=== PATIENT | male | born 1995 | race Caucasian/White ===

== ENCOUNTER 2016-04-17 19:48 | Emergency (ER) | payer MEDICAID ==
--- NOTE | 2016-04-17 21:00 | RAD ---
Indication: Chest pain. 2 views of the chest including dual energy PA views demonstrates no mediastinal shift. Heart is of normal size and configuration. Lung james are clear. IMPRESSION: No active cardiopulmonary disease is noted.
[2016-04-17] MEDS ORDERED: Aspirin Low Dose CHEW TAB* 81 MG PO ONE (21:28)
[2016-04-17] MEDS ORDERED: LORazepam INJ* 2 MG/ML 1 ML VIAL IV PUSH ONE (21:49)
[2016-04-17 22:16] LABS: Hematocrit 47 % (42-52); Hemoglobin 15.7 g/dl (14.0-18.0); Mean Corpuscular HGB Conc 34 g/dl (31-36); Mean Corpuscular Hemoglobin 32 pg (27-31); Mean Corpuscular Volume 94 fL (80-94); Mean Platelet Volume 8 um3 (7.4-10.4); Red Blood Count 4.97 10^6/ul (4.0-5.4); Red Cell Distribution Width 13 % (10.5-15); White Blood Count 13.2 10^3/ul (3.5-10.8)
[2016-04-17 22:32] LABS: Albumin 4.6 g/dL (3.2-5.2); BUN/Creatinine Ratio 13.1 (8-20); EGFR African American 98.4 (>60); EGFR Non-African American 76.5 (>60); Globulin 2.9 g/dL (2-4); Potassium 4.3 mmol/L (3.5-5.0); Total Bilirubin 0.5 mg/dL (0.2-1.0); Total Protein 7.5 g/dL (6.4-8.9)
[2016-04-17 22:34] LABS: Troponin I 0.03 ng/mL (<0.04)
[2016-04-17] MEDS ORDERED: Ketorolac INJ* 30 MG/ML 1 ML VIAL IV ONE (23:01)
[2016-04-17 23:53] VITALS: BP 119/53
--- NOTE | 2016-04-17 23:53 | ED ---
Candelaria Cantu Michael, scribed for Chely Laws MD on 04/17/16 at 2200 . HPI Chest Pain - HPI Summary HPI Summary: 20 y/o male comes to the ED presenting with constant chest pain that started today at 1300. The pt reports that he used cocaine today at 1200 and has a hx of using cocaine once every few weeks. He states the pain is a 7 out of 10 on a pain severity scale. He denies experiencing chest pain with prior cocaine use. He also c/o SOB. - History of Current Complaint Chief Complaint: EDChestPainROMI Time Seen by Provider: 04/17/16 21:28 Hx Obtained From: Patient, Medical Records Onset/Duration: Started Hours Ago Timing: Constant Initial Severity: Moderate Current Severity: Moderate Pain Intensity: 7 Pain Scale Used: 0-10 Numeric Chest Pain Radiates: No Aggravating Factor(s): Other: - cocaine use Alleviating Factor(s): Nothing Associated Signs and Symptoms: Positive: Chest Pain, Shortness of Breath - Allergy/Home Medications Allergies/Adverse Reactions: Allergies Allergy/AdvReac Type Severity Reaction Status Date / Time No Known Allergies Allergy Unverified 12/29/15 10:23 PMH/Surg Hx/FS Hx/Imm Hx Endocrine/Hematology History: Denies: Hx Diabetes, Hx Thyroid Disease Cardiovascular History: Denies: Hx Congestive Heart Failure, Hx Hypertension Respiratory History: Denies: Hx Asthma, Hx Chronic Obstructive Pulmonary Disease (COPD) GI History: Denies: Hx Ulcer History: Denies: Hx Renal Disease - Cancer History Cancer Type, Location and Year: ADHD - Surgical History Surgery Procedure, Year, and Place: appendectomy, lump removed R wrist Hx Anesthesia Reactions: No Infectious Disease History: No Infectious Disease History: Denies: Hx Hepatitis, Hx Human Immunodeficiency Virus (HIV), Traveled Outside the US in Last 30 Days - Family History Known Family History: Positive: Hypertension - Social History Occupation: Unemployed Lives: With Family Alcohol Use: None Hx Substance Use: Yes Substance Use Type: Reports: Cocaine, Marijuana Substance Use Comment - Amount & Last Used: states he has been in rehab and has not used any since Hx Tobacco Use: No Smoking Status (MU): Light Every Day Tobacco Smoker Type: Cigarettes Review of Systems Negative: Fever Positive: Chest Pain Positive: Shortness Of Breath All Other Systems Reviewed And Are Negative: Yes Physical Exam Triage Information Reviewed: Yes Vital Signs On Initial Exam: Initial Vitals Temp Pulse Resp BP Pulse Ox 99.5 F 120 18 161/77 100 04/17/16 19:55 04/17/16 19:55 04/17/16 19:55 04/17/16 19:55 04/17/16 19:55 Vital Signs Reviewed: Yes Appearance: Positive: Well-Appearing, No Pain Distress Skin: Positive: Warm, Skin Color Reflects Adequate Perfusion, Dry Eyes: Positive: EOMI, JEWELL ENT: Positive: Pharynx normal, TMs normal Neck: Positive: Supple, Nontender Respiratory/Lung Sounds: Positive: Clear to Auscultation, Breath Sounds Present. Negative: Rales, Rhonchi, Wheezes Cardiovascular: Positive: RRR, Other - no gallop. Negative: Murmur, Rub Abdomen Description: Positive: Nontender, Soft, Other: - no rebound. Negative: Distended, Guarding Bowel Sounds: Positive: Present Musculoskeletal: Positive: Strength/ROM Intact Neurological: Positive: Sensory/Motor Intact, Alert, Oriented to Person Place, Time, CN Intact II-III Psychiatric: Positive: Affect/Mood Appropriate Diagnostics - Vital Signs Vital Signs Temp Pulse Resp BP Pulse Ox 04/17/16 19:55 99.5 F 120 18 161/77 100 - Laboratory Lab Results: Lab Results 04/17/16 04/17/16 04/17/16 Range/Units 22:05 22:05 22:05 WBC 13.2 H (3.5-10.8) 10^3/ul RBC 4.97 (4.0-5.4) 10^6/ul Hgb 15.7 (14.0-18.0) g/dl Hct 47 (42-52) % MCV 94 (80-94) fL MCH 32 H (27-31) pg MCHC 34 (31-36) g/dl RDW 13 (10.5-15) % Plt Count 239 (150-450) 10^3/ul MPV 8 (7.4-10.4) um3 Neut % (Auto) 82.6 (38-83) % Lymph % (Auto) 12.3 L (25-47) % Williamson % (Auto) 4.7 (1-9) % Eos % (Auto) 0.1 (0-6) % Baso % (Auto) 0.3 (0-2) % Absolute Neuts (auto) 10.9 H (1.5-7.7) 10^3/ul Absolute Lymphs (auto) 1.6 (1.0-4.8) 10^3/ul Absolute Monos (auto) 0.6 (0-0.8) 10^3/ul Absolute Eos (auto) 0 (0-0.6) 10^3/ul Absolute Basos (auto) 0 (0-0.2) 10^3/ul Absolute Nucleated RBC 0 10^3/ul Nucleated RBC % 0 Sodium 138 (133-145) mmol/L Potassium 4.3 (3.5-5.0) mmol/L Chloride 103 (101-111) mmol/L Carbon Dioxide 27 (22-32) mmol/L Anion Gap 8 (2-11) mmol/L BUN 16 (6-24) mg/dL Creatinine 1.22 H (0.67-1.17) mg/dL Est GFR ( Amer) 98.4 (>60) Est GFR (Non-Af Amer) 76.5 (>60) BUN/Creatinine Ratio 13.1 (8-20) Glucose 92 (70-100) mg/dL Lactic Acid 1.4 (0.5-2.0) mmol/L Calcium 10.0 (8.6-10.3) mg/dL Total Bilirubin 0.50 (0.2-1.0) mg/dL AST 18 (13-39) U/L ALT 18 (7-52) U/L Alkaline Phosphatase 128 H (34-104) U/L Troponin I 0.03 (<0.04) ng/mL Total Protein 7.5 (6.4-8.9) g/dL Albumin 4.6 (3.2-5.2) g/dL Globulin 2.9 (2-4) g/dL Albumin/Globulin Ratio 1.6 (1-3) Result Diagrams: 04/17/16 22:05 04/17/16 22:05 Lab Statement: Any lab studies that have been ordered have been reviewed, and results considered in the medical decision making process. - Radiology CXR Xray Interpretation: No Acute Changes Radiology Interpretation Completed By: Radiologist - EKG EK EKG Rhythm: Sinus Tachycardia - 103 bpm Chest Pain Course/Dx - Course Course Of Treatment: 20 y/o male comes to the ED presenting with CP after cocaine use today. His EKG showed tachycardia and his CXR was nml. The pt is dx with chest pain and cocaine abuse and will be discharged home. cp unchanged since 1pm today trop is neg. given ativan and toradol much more comfortable and ok to go home. long talk with pt about cocaine/crack and its bad effects on the heart - Diagnoses Provider Diagnoses: Cocaine abuse, Chest pain Discharge - Discharge Plan Condition: Stable Disposition: HOME Patient Education Materials: Cocaine Abuse (ED), Chest Pain (ED) Referrals: Henry Aleman MD [Primary Care Provider] - Additional Instructions: you will follow up with Dr. Aleman within the next 2 days. The documentation as recorded by the Candelaria mclean Michael accurately reflects the service I personally performed and the decisions made by me, Chely Laws MD.
[2016-05-01] MEDS ORDERED: Ibuprofen TAB* 400 MG PO PRN (19:30)
== END 2016-04-17 23:52 | disposition home or self-care (01) ==
LOC: ED 19:48
DX: F14.10 Cocaine abuse, uncomplicated (principal); R07.9 Chest pain, unspecified; R06.02 Shortness of breath; F17.210 Nicotine dependence, cigarettes, uncomplicated
CPT/HCPCS: 36415; 71020; 80053; 83605; 84484; 85025; 93005; 96374; 96375; 99282; A9270-GY; J1885; J2060

== ENCOUNTER 2016-04-18 01:55 | Inpatient (IN) | payer MEDICAID ==
[2016-04-18 02:33] LABS: Hematocrit 47 % (42-52); Hemoglobin 15.9 g/dl (14.0-18.0); Mean Corpuscular HGB Conc 34 g/dl (31-36); Mean Corpuscular Hemoglobin 32 pg (27-31); Mean Corpuscular Volume 94 fL (80-94); Mean Platelet Volume 8 um3 (7.4-10.4); Red Blood Count 4.97 10^6/ul (4.0-5.4); Red Cell Distribution Width 13 % (10.5-15)
[2016-04-18 02:45] LABS: ALT 17 U/L (7-52); AST 17 U/L (13-39); Albumin 4.8 g/dL (3.2-5.2); Alkaline Phosphatase 116 U/L (34-104); Anion Gap 9 mmol/L (2-11); Blood Urea Nitrogen 18 mg/dL (6-24); CO2 Carbon Dioxide 27 mmol/L (22-32); Calcium 9.9 mg/dL (8.6-10.3); Chloride 101 mmol/L (101-111); EGFR African American 100.3 (>60); Globulin 2.5 g/dL (2-4); Glucose 97 mg/dL (70-100); Potassium 3.7 mmol/L (3.5-5.0); Sodium 137 mmol/L (133-145); Total Protein 7.3 g/dL (6.4-8.9)
[2016-04-18 03:11] LABS: Acetaminophen < 15 mcg/mL; Alcohol < 10 mg/dL (<10); Salicylate < 2.50 mg/dL (<30)
[2016-04-18 03:22] LABS: TSH (Thyroid Stimulating Horm) 4.04 mcIU/mL (0.34-5.60)
[2016-04-18] MEDS ORDERED: LORazepam TAB(*) 1 MG PO ONE (03:27)
--- NOTE | 2016-04-18 06:36 | ED ---
karen Cantu Timothy, scribed for Kosta Daly MD on 04/18/16 at 0253 . Psychiatric Complaint - HPI Summary HPI Summary: Michoacano Gonzales is a 20 yo male presenting to [facility] for a MHE, BIBA. He got into a fight with his family at 0100 today, and wants to hurt someone, per triage, and in room. He states he called the police on himself. He called from a store, where he was told by the dispatcher to hand over a pocket knife in his possession. He was seen by [facility] yesterday for CP following cocaine use. He states he has been hearing voices. He has a Hx of chronic cocaine use. He has no pertinent MHx. - History Of Current Complaint Time Seen by Provider: 04/18/16 02:34 Hx Obtained From: Patient Timing: Constant Severity Initially: Moderate Severity Currently: Moderate Associated Signs And Symptoms: Positive: Hostile - Allergies/Home Medications Allergies/Adverse Reactions: Allergies Allergy/AdvReac Type Severity Reaction Status Date / Time No Known Allergies Allergy Unverified 12/29/15 10:23 PMH/Surg Hx/FS Hx/Imm Hx Endocrine/Hematology History: Denies: Hx Diabetes, Hx Thyroid Disease Cardiovascular History: Denies: Hx Congestive Heart Failure, Hx Hypertension Respiratory History: Denies: Hx Asthma, Hx Chronic Obstructive Pulmonary Disease (COPD) GI History: Denies: Hx Ulcer History: Denies: Hx Renal Disease - Cancer History Cancer Type, Location and Year: ADHD - Surgical History Surgery Procedure, Year, and Place: appendectomy, lump removed R wrist Hx Anesthesia Reactions: No Infectious Disease History: No Infectious Disease History: Denies: Hx Hepatitis, Hx Human Immunodeficiency Virus (HIV), Traveled Outside the US in Last 30 Days - Family History Known Family History: Positive: Hypertension - Social History Lives: With Family Alcohol Use: None Hx Substance Use: Yes Substance Use Type: Reports: Cocaine, Marijuana Substance Use Comment - Amount & Last Used: states he has been in rehab and has not used any since Hx Tobacco Use: No Smoking Status (MU): Light Every Day Tobacco Smoker Type: Cigarettes Review of Systems Constitutional: Negative Eyes: Negative ENT: Negative Cardiovascular: Negative Respiratory: Negative Gastrointestinal: Negative Genitourinary: Negative Musculoskeletal: Negative Skin: Negative Neurological: Negative Positive: Other - auditory hallucinations, homicidal ideation All Other Systems Reviewed And Are Negative: Yes Physical Exam - Summary Physical Exam Summary: GENERAL: Awake, alert, oriented, no acute distress, very pleasant HEENT: Head is normocephalic, atraumatic, anicteric sclera, clear conjunctiva, mucous membranes moist, no erythema, no discharge, no lesions, neck is supple, trachea is midline, no JVD CARDIAC: Regular rate and rhythm, S1, S2, no rub, no murmur, no gallop, 2+ radial and pedal pulses bilaterally RESPIRATORY: Clear to auscultation bilaterally with no rales, rhonchi, or wheezes, non-tender ABDOMEN: Bowel sounds positive, no bruit, soft, non-tender, no CVA tenderness EXTREMITIES: No edema, warm, dry, moving all extremities in a grossly normal manner NEUROLOGICAL: Mood is appropriate, moving all extremities in a grossly normal manner Triage Information Reviewed: Yes Vital Signs On Initial Exam: Initial Vitals Temp Pulse Resp BP Pulse Ox 98.6 F 90 16 112/74 98 04/18/16 02:12 04/18/16 02:12 04/18/16 02:12 04/18/16 02:12 04/18/16 02:12 Vital Signs Reviewed: Yes Diagnostics - Vital Signs Vital Signs Temp Pulse Resp BP Pulse Ox 04/18/16 02:12 98.6 F 90 16 112/74 98 - Laboratory Lab Results: Lab Results 04/18/16 04/18/16 Range/Units 02:19 02:19 WBC 10.0 (3.5-10.8) 10^3/ul RBC 4.97 (4.0-5.4) 10^6/ul Hgb 15.9 (14.0-18.0) g/dl Hct 47 (42-52) % MCV 94 (80-94) fL MCH 32 H (27-31) pg MCHC 34 (31-36) g/dl RDW 13 (10.5-15) % Plt Count 221 (150-450) 10^3/ul MPV 8 (7.4-10.4) um3 Neut % (Auto) 68.8 (38-83) % Lymph % (Auto) 23.2 L (25-47) % Bullock % (Auto) 7.5 (1-9) % Eos % (Auto) 0.2 (0-6) % Baso % (Auto) 0.3 (0-2) % Absolute Neuts (auto) 6.9 (1.5-7.7) 10^3/ul Absolute Lymphs (auto) 2.3 (1.0-4.8) 10^3/ul Absolute Monos (auto) 0.7 (0-0.8) 10^3/ul Absolute Eos (auto) 0 (0-0.6) 10^3/ul Absolute Basos (auto) 0 (0-0.2) 10^3/ul Absolute Nucleated RBC 0 10^3/ul Nucleated RBC % 0 Sodium 137 (133-145) mmol/L Potassium 3.7 (3.5-5.0) mmol/L Chloride 101 (101-111) mmol/L Carbon Dioxide 27 (22-32) mmol/L Anion Gap 9 (2-11) mmol/L BUN 18 (6-24) mg/dL Creatinine 1.20 H (0.67-1.17) mg/dL Est GFR ( Amer) 100.3 (>60) Est GFR (Non-Af Amer) 78.0 (>60) BUN/Creatinine Ratio 15.0 (8-20) Glucose 97 (70-100) mg/dL Calcium 9.9 (8.6-10.3) mg/dL Total Bilirubin 0.70 (0.2-1.0) mg/dL AST 17 (13-39) U/L ALT 17 (7-52) U/L Alkaline Phosphatase 116 H (34-104) U/L Total Protein 7.3 (6.4-8.9) g/dL Albumin 4.8 (3.2-5.2) g/dL Globulin 2.5 (2-4) g/dL Albumin/Globulin Ratio 1.9 (1-3) TSH 4.04 (0.34-5.60) mcIU/mL Salicylates < 2.50 (<30) mg/dL Acetaminophen < 15 mcg/mL Serum Alcohol < 10 (<10) mg/dL Result Diagrams: 04/18/16 02:19 04/18/16 02:19 Lab Statement: Any lab studies that have been ordered have been reviewed, and results considered in the medical decision making process. Course/Dx - Course Assessment/Plan: Pt medically cleared for [facility] at 0320. - Differential Dx/Clinical Impression Provider Diagnosis: mood disorder Discharge - Discharge Plan Condition: Stable Disposition: OTHER Discharge Disposition Comment: Signed out to Dr. Hutchins The documentation as recorded by the karen mclean Timothy accurately reflects the service I personally performed and the decisions made by me, Kosta Daly MD.
[2016-04-18] MEDS ORDERED: Al Hydrox/Mg Hydrox/Simet LIQ* 30 ML UDC PO PRN (16:07)
[2016-04-18 17:27] LABS: Urine Bilirubin Negative (Negative); Urine Glucose Negative (Negative); Urine Nitrite Negative (Negative)
[2016-04-18 17:36] LABS: Benzodiazepine Urine Screen None Detected (None Detect)
[2016-04-18] MEDS: Acetaminophen TAB* 325 MG PO PRN (21:06)
[2016-04-19] MEDS: OLANzapine TAB*ODT* 10 MG TAB PO PRN ×2 (01:15→20:20)
--- NOTE | 2016-04-19 15:28 | PN ---
ED Flex Patient Progress Note Subjective: This is a 20 year-old M who is pending admission to [facility] secondary to wanting to hurt his family. Pt offers no complaints at this time. He has eaten breakfast today stating that lunch was disgusting. He is sleeping well after medication was given last night. He is cooperative at time of exam. Objective: Vitals: Most recent vital signs documented below. General NAD, Alert and oriented x3. Heart: rrr at 80 bpm Lungs: CTA or with rales, rhonchi, wheezing Abdomen: soft, nontender, normactive bowel sounds Laboratory: Current laboratory results documented below. Assessment: Mood disorder Plan: Pending psychiatric to admit, will follow up daily until placed in unit Condition: stable Disposition: admit to [facility] Vital Signs Temp Pulse Resp BP Pulse Ox 98.9 F 101 16 129/66 98 04/18/16 09:47 04/18/16 09:47 04/18/16 09:47 04/18/16 09:47 04/18/16 09:47 Lab Results - Entire Visit 04/18/16 04/18/16 04/18/16 17:00 17:00 02:19 WBC RBC Hgb Hct MCV MCH MCHC RDW Plt Count MPV Neut % (Auto) Lymph % (Auto) Mcleod % (Auto) Eos % (Auto) Baso % (Auto) Absolute Neuts (auto) Absolute Lymphs (auto) Absolute Monos (auto) Absolute Eos (auto) Absolute Basos (auto) Absolute Nucleated RBC Nucleated RBC % Sodium 137 Potassium 3.7 Chloride 101 Carbon Dioxide 27 Anion Gap 9 BUN 18 Creatinine 1.20 H Est GFR ( Amer) 100.3 Est GFR (Non-Af Amer) 78.0 BUN/Creatinine Ratio 15.0 Glucose 97 Calcium 9.9 Total Bilirubin 0.70 AST 17 ALT 17 Alkaline Phosphatase 116 H Total Protein 7.3 Albumin 4.8 Globulin 2.5 Albumin/Globulin Ratio 1.9 TSH 4.04 Urine Color Yellow Urine Appearance Clear Urine pH 6.0 Ur Specific Lamar 1.021 Urine Protein Negative Urine Ketones Negative Urine Blood Negative Urine Nitrate Negative Urine Bilirubin Negative Urine Urobilinogen Negative Ur Leukocyte Esterase Negative Urine Glucose Negative Salicylates < 2.50 Urine Opiates Screen None detected Acetaminophen < 15 Ur Barbiturates Screen None detected Ur Phencyclidine Scrn None detected Ur Amphetamines Screen None detected U Benzodiazepines Scrn None detected Urine Cocaine Screen Presumptive positive H U Cannabinoids Screen Presumptive positive H Serum Alcohol < 10 04/18/16 02:19 WBC 10.0 RBC 4.97 Hgb 15.9 Hct 47 MCV 94 MCH 32 H MCHC 34 RDW 13 Plt Count 221 MPV 8 Neut % (Auto) 68.8 Lymph % (Auto) 23.2 L Mcleod % (Auto) 7.5 Eos % (Auto) 0.2 Baso % (Auto) 0.3 Absolute Neuts (auto) 6.9 Absolute Lymphs (auto) 2.3 Absolute Monos (auto) 0.7 Absolute Eos (auto) 0 Absolute Basos (auto) 0 Absolute Nucleated RBC 0 Nucleated RBC % 0 Sodium Potassium Chloride Carbon Dioxide Anion Gap BUN Creatinine Est GFR ( Amer) Est GFR (Non-Af Amer) BUN/Creatinine Ratio Glucose Calcium Total Bilirubin AST ALT Alkaline Phosphatase Total Protein Albumin Globulin Albumin/Globulin Ratio TSH Urine Color Urine Appearance Urine pH Ur Specific Lamar Urine Protein Urine Ketones Urine Blood Urine Nitrate Urine Bilirubin Urine Urobilinogen Ur Leukocyte Esterase Urine Glucose Salicylates Urine Opiates Screen Acetaminophen Ur Barbiturates Screen Ur Phencyclidine Scrn Ur Amphetamines Screen U Benzodiazepines Scrn Urine Cocaine Screen U Cannabinoids Screen Serum Alcohol
[2016-04-19] MEDS ORDERED: Mouth Piece, Nicotine* 1 EACH CARTRIDGE ONE (16:35)
[2016-04-19] MEDS: Nicotine Inhaler* 10 MG AMP INH PRN (16:36)
[2016-04-19] MEDS: Vitamin THERAPEUTIC TAB PO SCH (20:54)
[2016-04-20] MEDS: OLANzapine TAB*ODT* 10 MG TAB PO PRN ×2 (08:24→20:18)
[2016-04-20] MEDS: Vitamin THERAPEUTIC TAB PO SCH (08:24)
--- NOTE | 2016-04-20 11:55 | PN ---
MHU: Group Therapy Note - Service Type Service Type: [id number] Group Psychotherapy - Cognitive Behavioral Group Therapy ( CBT):Patient was attentive and participatory in CBT programming this morning, and remained in good behavioral control. Patient expressed positive insights regarding relevant treatment interventions and goals.
--- NOTE | 2016-04-20 14:25 | HP ---
DATE OF ADMISSION: 04/19/2016. JUSTIFICATION FOR ADMISSION: The patient is in need of 24 hour supervision and care secondary to homicidal statements with 72 hours of admission date. CHIEF COMPLAINT: "I just needed a break. I was at the ER earlier in the day and I decided to come back to get off the streets." HISTORY OF PRESENT ILLNESS: The patient is a 20-year-old, white and -Salvadorean male with a history of ADHD and substance abuse issues who arrived at our emergency room for the second evaluation in a 24 hour period due to homicidal ideations. The patient had been earlier evaluated in our ER for cocaine- induced chest pain and had been discharged to home. Later he had arrived at his mother's house and gotten into some type of altercation with his mother and brother which was verbal in nature and he left the house being angry and frustrated. He went to a local gas station where he told the gasoline plant operator that he was experiencing mental health problems and asked her to call the ambulance. At that point, the dispatcher maintenance service spoke with him on the phone and he admitted that he had a 4 inch pocket knife which at the dispatcher' s request he handed over to the gas cab station attendant. From there the ambulance brought him back to the ER where he continued to endorse being unsafe. He specifically had homicidal ideations towards his family. When asked about a plan, he specifically told them that he would bake them a pie and put antifreeze in it "to make them go to sleep forever." At this point, the patient has a very different story. Apparently the cocaine in his system has worn off and he is no longer agitated or homicidal. In fact, he is very much minimizing the circumstances of this admission, telling me "I just needed an excuse to come to the hospital, I wasn't going to hurt someone, I've never hurt anybody." Although he had endorsed auditory hallucinations in the ER, he now denies them, stating that whoever documented this in the ER is being dishonest. 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 She is informing me that it is her intention to violate his probation if he does not accept transfer to an inpatient substance abuse facility. The patient is in agreement with this and is willing to sign consent to be transferred to rehab. PAST PSYCHIATRIC HISTORY: The patient does admit that he was diagnosed with ADHD as a child and used to take Ritalin. According to his mother, he also received treatment with Seroquel. This was through the [facility], which is through [facility]. The patient also had a brief history of treatment at [facility] in 2012. Other than this, his only psychiatric assessments have been in the substance abuse setting. The patient has no history of psychiatric admission or suicidal behavior. PAST MEDICAL HISTORY: Noncontributory. MEDICATIONS: He is on no current medications. ALLERGIES: He has no known drug allergies. FAMILY HISTORY: Significant for his mother who has bipolar disorder. Apparently, both his mother and father have abused cocaine in the past. SUBSTANCE ABUSE HISTORY: The patient's most recent treatment was at the [facility] program in January of 2016, but he left this against medical advise. Prior to this, he had a six month inpatient rehab stent at [facility], which is in [place], [place], but then he left against medical advise in August of 2015. His substances of choice tend to be daily cannabis and weekly cocaine. He denies any past history of heroin, methamphetamine or alcohol abuse. He smokes approximately a quarter pack of cigarettes per day. SOCIAL HISTORY: The patient was born and raised here in [place]. His parents split up when he was approximately [age] year old. He does have a 23-year-old sister and a 20-year-old brother. His father lives locally and he has contact with both parents. Currently, he is living with his mother and his brother. He has a 10th grade education, having dropped out at that time and he recently failed his first attempt at a GED. Currently, he is unemployed, but states that he is looking for work. He has no history of service. He is not sexually active and he has no history of STD's. The patient is neither spiritual nor jew. LEGAL HISTORY: Significant for arrest for criminal possession of stolen property and he has been on probation since this crime in 2014. Since being convicted of this crime in 2014, he did spend approximately six months in custodial in late 2014 and early 2015. REVIEW OF SYSTEMS: The patient denies headache, double vision, sore throat, cough, chest pain, difficulty breathing. He denies abdominal pain, nausea, vomiting, diarrhea or constipation. The patient denies difficulty ambulating, any rashes, fevers or changes in weight. PHYSICAL EXAMINATION VITAL SIGNS: Blood pressure 118/72, heart rate 78, temperature 98.0 degrees Fahrenheit, respiratory rate 16, oxygen saturations 98 percent on room air. HEENT: Head is normocephalic, atraumatic. NECK: Supple. CHEST: Clear to auscultation bilaterally. CARDIAC: Exam reveals normal heart sounds. ABDOMEN: Soft and nontender. SKIN: Warm and dry. MUSCULOSKELETAL: Exam reveals no evidence of edema. NEUROLOGIC: He is grossly intact with no focal deficits. LABORATORY DATA: His complete metabolic panel is within normal limits as is his complete blood count. Urinalysis is negative and urine drug screen is positive for cocaine and cannabinoids, but negative for all other substances tested. MENTAL STATUS EXAM: The patient is a young, male wearing a black T- shirt, who is lying in bed, but gets up and makes appropriate eye contact when engaged. He is very much minimizing towards his situation, appears to be somewhat glib. Speech has normal rate, tone and volume. Mood is euthymic with a full affect. Thought process is linear and goal-directed. Thought content is significant for his desire to leave the inpatient psychiatric unit. He is denying suicidal or homicidal ideations. He denies auditory or visual hallucinations. Insight and judgment appears to be fair given his willingness to go to inpatient rehab. Cognitively, he is awake and alert with what appears to be a low average intellect by virtue of his academic attainment and his vocabulary. DIAGNOSES: AXIS I: Cocaine-induced mood disorder; cocaine use disorder; cannabis use disorder. AXIS II: Deferred. AXIS III: None. AXIS IV: Severe, financial primary support and legal stressors. AXIS V: At this time is 50. IMPRESSION: The patient is a 20-year-old, white and - Salvadorean male who has a history of ADHD and substance abuse who arrived at our hospital voluntarily seeking treatment for auditory hallucinations and homicidality. At this point, he has absolutely reversed himself and is denying ever admitting to these factors in the first place, stating that he just came for a place to seek sobriety off the streets. I have spoken with his general service officer who indicates that if he does not choose voluntary inpatient substance abuse rehab, that he will be violated and likely go to custodial. The patient is aware of this and states that it was his intention at any rate to go to rehab of his own volition. I do think that this would be the best course of action given the fact that his problems do seem to be substance abuse oriented in nature. PLAN: The patient is admitted to the Inpatient Psychiatric Unit where he is placed on q.30 minute checks for his own safety. We have made Zyprexa 5 mg p.o. q.6 hours prn available for any further agitation, but he seems calm and under control. For now, I believe that we should contact his mother for further collateral information and we should see about sending his information out as referral for inpatient rehab. While he is here, he is certainly encouraged to avail himself of all unit activities, including group and individual psychotherapy. I do not see the benefit of scheduling him on any psychotropic medications at this time given the fact that his problems seem to be of a substance abuse nature. [id number]/CPS #: [id number]
[2016-04-20] MEDS: Nicotine Inhaler* 10 MG AMP INH PRN (18:26)
[2016-04-21] MEDS: Vitamin THERAPEUTIC TAB PO SCH (09:25)
[2016-04-21] MEDS: OLANzapine TAB*ODT* 10 MG TAB PO PRN (09:26)
--- NOTE | 2016-04-21 14:21 | PN ---
Subjective - Subjective Service Type: 25897 Hosp care 15 min low complexity Subjective: The patient is calm and cooperative. No behavioral concerns noted although he does experience transient anxiety, for which he says olanzapine prn is unhelpful. He is in agreement with the transfer to a drug rehab facility. Objective - Appearance Appearance: Well Developed/Nourished Dysmorphic Features: No Hygiene: Normal Grooming: Well Kept - Behavior Psychomotor Activities: Normal Exhibits Abnormal Movement: Yes - Attitude and Relatedness Attitude and Relatedness: Cooperative Eye Contact: Good - Speech Quality: Unpressured Latencies: Normal Quantity: Appropriate - Mood Patient's Decription of Mood: "Okay" - Affect Observed Affect: Fair - Thought Process Patient's Thought Process: Coherent Thought Content: No Passive Wish, No Suicidal Planning, No Homicidal Ideation, No Paranoid Ideation - Sensorium Experiencing Hallucinations: No, Sensorium is Clear Type of Hallucinations: Visual: No, Auditory: No, Command: No - Level of Consciousness Level of Consciousness: Alert Orientation: Yes Intact, Yes Orientated to Time, Yes Orientated to Place, Yes Orientated to Person - Impulse Control Impulse Control: Tenuous - Insight and Judgement Insight and Judgement: Fair - Group Participation Particating in Group Activities: Yes - Medication Management Medication Management Adherence: Partial Assessment - Assessment Merits Inpatient Hospitalization: For Discharge Planning 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 single, mixed-race male with a Hx of cocaine and cannabis abuse admitted for agitation and HI related to recent drug abuse. He awaits transfer to inpatient drug rehab. Plan - Plan Treatment Plan: Name: CEE MOLINA Birthdate: 1995 [id number] Will d/c olanzapine and replace with quetiapine 50mg PO q6h prn for agitation/ anxiety. Await drug rehab placement. Continued Medication Management: Different Medication Medications: Current Medications Acetaminophen (Tylenol Tab*) 650 mg PO Q4H PRN PRN Reason: for pain; or Temp >101 F Last Admin: 04/18/16 21:06 Dose: 650 mg Al Hydrox/Mg Hydrox/Simethicone (Maalox Plus*) 30 ml PO Q4H PRN PRN Reason: INDIGESTION Multivitamins (Theragran Tab*) 1 tab PO DAILY [facility] Last Admin: 04/21/16 09:25 Dose: 1 tab Nicotine (Nicotine Inhaler*) 10 mg INH Q2H PRN PRN Reason: CRAVING Last Admin: 04/20/16 18:26 Dose: 10 mg Olanzapine (Zyprexa *Odt*) 5 mg PO Q4H PRN PRN Reason: AGITATION/ANXIETY/INSOMNIA Last Admin: 04/21/16 09:26 Dose: 5 mg - Discharge Plan Discharge Plan: Drug/Alcohol Rehab
[2016-04-21] MEDS: Nicotine Inhaler* 10 MG AMP INH PRN (17:49)
[2016-04-21] MEDS: Acetaminophen TAB* 325 MG PO PRN (18:18)
[2016-04-21] MEDS: QUEtiapine TAB* 25 MG PO PRN (20:42)
[2016-04-22] MEDS: Vitamin THERAPEUTIC TAB PO SCH (08:21)
[2016-04-22] MEDS: QUEtiapine TAB* 25 MG PO PRN ×3 (08:23→21:03)
[2016-04-22] MEDS: Nicotine Inhaler* 10 MG AMP INH PRN (12:45)
[2016-04-23] MEDS: QUEtiapine TAB* 25 MG PO PRN ×2 (08:35→20:27)
[2016-04-23] MEDS: Vitamin THERAPEUTIC TAB PO SCH (08:35)
[2016-04-24] MEDS: QUEtiapine TAB* 25 MG PO PRN ×2 (08:18→20:38)
[2016-04-24] MEDS: Vitamin THERAPEUTIC TAB PO SCH (08:18)
--- NOTE | 2016-04-24 11:12 | PN ---
MHU: Group Therapy Note - Service Type Service Type: [id number] Group Psychotherapy - Cognitive Behavioral Group Therapy ( CBT):Patient was attentive and participatory in CBT programming this morning, and remained in good behavioral control. Patient expressed positive insights regarding relevant treatment interventions and goals.
--- NOTE | 2016-04-24 13:43 | PN ---
Subjective - Subjective Service Type: 21562 Hosp care 15 min low complexity Subjective: Saw [place] yesterday and today. He appears more sociable and engaging today. Says ready for rehab if and when they are ready to take him. Denies any psychiatric problems including psychotic/manic or any violent thoughts. Objective - Appearance Appearance: Healthy Appearing Dysmorphic Features: No Hygiene: Normal Grooming: Well Kept - Behavior Psychomotor Activities: Normal Exhibits Abnormal Movement: No - Attitude and Relatedness Attitude and Relatedness: Appropriate Eye Contact: Good - Speech Quality: Unpressured Latencies: Normal Quantity: Appropriate - Mood Patient's Decription of Mood: "Great" - Affect Observed Affect: Non-labile Affect Consistent with: Euthymia - Thought Process Patient's Thought Process: Coherent, Goal Directed Thought Content: No Passive Wish, No Suicidal Planning, No Homicidal Ideation, No Paranoid Ideation - Sensorium Experiencing Hallucinations: No, Sensorium is Clear Type of Hallucinations: Visual: No, Auditory: No, Command: No - Level of Consciousness Level of Consciousness: Alert Orientation: Yes Intact, Yes Orientated to Time, Yes Orientated to Place, Yes Orientated to Person - Impulse Control Impulse Control: Intact - Insight and Judgement Insight and Judgement: Good - Group Participation Particating in Group Activities: Yes - Medication Management Medication Management Adherence: Yes Assessment - Assessment Merits Inpatient Hospitalization: Consolidate Improvements, Pending Safe DC Plan 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 Plan - Plan Treatment Plan: Name: MICHOACANO MOLINA Birthdate: 1995 [id number] Continued Medication Management: Continue Outpt Medication Medications: Current Medications Acetaminophen (Tylenol Tab*) 650 mg PO Q4H PRN PRN Reason: for pain; or Temp >101 F Last Admin: 04/21/16 18:18 Dose: 650 mg Al Hydrox/Mg Hydrox/Simethicone (Maalox Plus*) 30 ml PO Q4H PRN PRN Reason: INDIGESTION Multivitamins (Theragran Tab*) 1 tab PO DAILY [facility] Last Admin: 04/24/16 08:18 Dose: 1 tab Nicotine (Nicotine Inhaler*) 10 mg INH Q2H PRN PRN Reason: CRAVING Last Admin: 04/22/16 12:45 Dose: 10 mg Quetiapine Fumarate (Seroquel Tab*) 50 mg PO Q6H PRN PRN Reason: AGITATION/ANXIETY/INSOMNIA Last Admin: 04/24/16 08:18 Dose: 50 mg - Discharge Plan Discharge Plan: Drug/Alcohol Rehab
[2016-04-24] MEDS ORDERED: Mouth Piece, Nicotine* 1 EACH CARTRIDGE ONE (22:10)
[2016-04-24] MEDS: Nicotine Inhaler* 10 MG AMP INH PRN (22:12)
[2016-04-25] MEDS: Nicotine Inhaler* 10 MG AMP INH PRN ×5 (08:42→22:06)
[2016-04-25] MEDS: Vitamin THERAPEUTIC TAB PO SCH (08:42)
[2016-04-25] MEDS: QUEtiapine TAB* 25 MG PO PRN ×2 (08:43→15:20)
--- NOTE | 2016-04-25 11:26 | PN ---
MHU: Group Therapy Note - Service Type Service Type: [id number] Group Psychotherapy - Cognitive Behavioral Group Therapy ( CBT):Patient was attentive and participatory in CBT programming this morning, and remained in good behavioral control. Patient expressed positive insights regarding relevant treatment interventions and goals.
--- NOTE | 2016-04-25 12:52 | PN ---
Subjective - Subjective Service Type: 04997 Hosp care 15 min low complexity Subjective: The patient is cooperative, but impatient to leave the hospital. He complains of insomnia. Patient denies SI or HI and continues to acknowledge his need for drug rehab on an inpatient basis. Objective - Appearance Appearance: Well Developed/Nourished Dysmorphic Features: No Hygiene: Normal Grooming: Fairly Well Kept - Behavior Psychomotor Activities: Normal Exhibits Abnormal Movement: No - Attitude and Relatedness Attitude and Relatedness: Cooperative Eye Contact: Good - Speech Quality: Unpressured Latencies: Normal Quantity: Appropriate - Mood Patient's Decription of Mood: "Anxious" - Affect Observed Affect: Good Affect Consistent with: Euthymia - Thought Process Patient's Thought Process: Coherent Thought Content: No Passive Wish, No Suicidal Planning, No Homicidal Ideation, No Paranoid Ideation - Sensorium Experiencing Hallucinations: No, Sensorium is Clear Type of Hallucinations: Visual: No, Auditory: No, Command: No - Level of Consciousness Level of Consciousness: Alert Orientation: Yes Intact, Yes Orientated to Time, Yes Orientated to Place, Yes Orientated to Person - Impulse Control Impulse Control: Intact - Insight and Judgement Insight and Judgement: Fair - Group Participation Particating in Group Activities: Yes - Medication Management Medication Management Adherence: Yes Assessment - Assessment Merits Inpatient Hospitalization: Pending Safe DC Plan 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 single, mixed-race male with a Hx of cocaine and cannabis abuse admitted for agitation and HI related to recent drug abuse. He awaits transfer to inpatient drug rehab. Plan - Plan Treatment Plan: Name: CEE MOLINA Birthdate: 1995 [id number] Will start quetiapine 200mg PO qhs for insomnia. Await drug rehab placement. Continued Medication Management: Continue Outpt Medication Medications: Current Medications Acetaminophen (Tylenol Tab*) 650 mg PO Q4H PRN PRN Reason: for pain; or Temp >101 F Last Admin: 04/21/16 18:18 Dose: 650 mg Al Hydrox/Mg Hydrox/Simethicone (Maalox Plus*) 30 ml PO Q4H PRN PRN Reason: INDIGESTION Multivitamins (Theragran Tab*) 1 tab PO DAILY [facility] Last Admin: 04/25/16 08:42 Dose: 1 tab Nicotine (Nicotine Inhaler*) 10 mg INH Q2H PRN PRN Reason: CRAVING Last Admin: 04/25/16 12:30 Dose: 10 mg Quetiapine Fumarate (Seroquel Tab*) 50 mg PO Q6H PRN PRN Reason: AGITATION/ANXIETY/INSOMNIA Last Admin: 04/25/16 08:43 Dose: 50 mg Quetiapine Fumarate (Seroquel Tab*) 100 mg PO BEDTIME [facility] - Discharge Plan Discharge Plan: Drug/Alcohol Rehab
[2016-04-25] MEDS: QUEtiapine TAB* 100 MG PO SCH (21:16)
[2016-04-26] MEDS: QUEtiapine TAB* 25 MG PO PRN (08:13)
[2016-04-26] MEDS: Vitamin THERAPEUTIC TAB PO SCH (08:14)
[2016-04-26] MEDS: Nicotine Inhaler* 10 MG AMP INH PRN ×4 (08:57→21:01)
--- NOTE | 2016-04-26 13:59 | PN ---
Subjective - Subjective Service Type: 35339 Hosp care 15 min low complexity Subjective: The patient states that he slept better last night with quetiapine and has also been taking this as a prn for anxiety. He is calm and cooperative on the unit. Objective - Appearance Appearance: Well Developed/Nourished Dysmorphic Features: No Hygiene: Normal Grooming: Well Kept - Behavior Psychomotor Activities: Normal Exhibits Abnormal Movement: No - Attitude and Relatedness Attitude and Relatedness: Cooperative Eye Contact: Good - Speech Quality: Unpressured Latencies: Normal Quantity: Appropriate - Mood Patient's Decription of Mood: "Good" - Affect Observed Affect: Fair Affect Consistent with: Euthymia - Thought Process Patient's Thought Process: Coherent Thought Content: No Passive Wish, No Suicidal Planning, No Homicidal Ideation, No Paranoid Ideation - Sensorium Experiencing Hallucinations: No, Sensorium is Clear Type of Hallucinations: Visual: No, Auditory: No, Command: No - Level of Consciousness Level of Consciousness: Alert Orientation: Yes Intact, Yes Orientated to Time, Yes Orientated to Place, Yes Orientated to Person - Impulse Control Impulse Control: Tenuous - Insight and Judgement Insight and Judgement: Fair - Group Participation Particating in Group Activities: Yes - Medication Management Medication Management Adherence: Yes Assessment - Assessment Merits Inpatient Hospitalization: Pending Safe DC Plan 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 single, mixed-race male with a Hx of cocaine and cannabis abuse admitted for agitation and HI related to recent drug abuse. He awaits transfer to inpatient drug rehab. Plan - Plan Treatment Plan: Name: CEE MOLINA Birthdate: 1995 [id number] Patient doing well on quetiapine 200mg PO qhs for insomnia. Await drug rehab placement. Continued Medication Management: Start Medication Medications: Current Medications Acetaminophen (Tylenol Tab*) 650 mg PO Q4H PRN PRN Reason: for pain; or Temp >101 F Last Admin: 04/21/16 18:18 Dose: 650 mg Al Hydrox/Mg Hydrox/Simethicone (Maalox Plus*) 30 ml PO Q4H PRN PRN Reason: INDIGESTION Multivitamins (Theragran Tab*) 1 tab PO DAILY [facility] Last Admin: 04/26/16 08:14 Dose: 1 tab Nicotine (Nicotine Inhaler*) 10 mg INH Q2H PRN PRN Reason: CRAVING Last Admin: 04/26/16 12:29 Dose: 10 mg Quetiapine Fumarate (Seroquel Tab*) 50 mg PO Q6H PRN PRN Reason: AGITATION/ANXIETY/INSOMNIA Last Admin: 04/26/16 08:13 Dose: 50 mg Quetiapine Fumarate (Seroquel Tab*) 100 mg PO BEDTIME [facility] Last Admin: 04/25/16 21:16 Dose: 100 mg - Discharge Plan Discharge Plan: Drug/Alcohol Rehab
[2016-04-26] MEDS: QUEtiapine TAB* 100 MG PO SCH (21:01)
[2016-04-27] MEDS: QUEtiapine TAB* 25 MG PO PRN (08:25)
[2016-04-27] MEDS: Vitamin THERAPEUTIC TAB PO SCH (08:25)
[2016-04-27] MEDS: Nicotine Inhaler* 10 MG AMP INH PRN ×5 (08:26→22:28)
--- NOTE | 2016-04-27 10:28 | PN ---
Subjective - Subjective Service Type: 70059 Hosp care 15 min low complexity Subjective: The patient is calm, cooperative and under control. He has been accepted at a rehab in [place], [place] but awaits an available bed. Objective - Appearance Appearance: Well Developed/Nourished Dysmorphic Features: No Hygiene: Normal Grooming: Well Kept - Behavior Psychomotor Activities: Normal Exhibits Abnormal Movement: No - Attitude and Relatedness Attitude and Relatedness: Cooperative Eye Contact: Good - Speech Quality: Unpressured Latencies: Normal Quantity: Appropriate - Mood Patient's Decription of Mood: "Good" - Affect Observed Affect: Good Affect Consistent with: Euthymia - Thought Process Patient's Thought Process: Coherent Thought Content: No Passive Wish, No Suicidal Planning, No Homicidal Ideation, No Paranoid Ideation - Sensorium Experiencing Hallucinations: No, Sensorium is Clear Type of Hallucinations: Visual: No, Auditory: No, Command: No - Level of Consciousness Level of Consciousness: Alert Orientation: Yes Intact, Yes Orientated to Time, Yes Orientated to Place, Yes Orientated to Person - Impulse Control Impulse Control: Poor - Insight and Judgement Insight and Judgement: Impaired - Group Participation Particating in Group Activities: Yes - Medication Management Medication Management Adherence: Yes Assessment - Assessment Merits Inpatient Hospitalization: Pending Safe DC Plan 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 single, mixed-race male with a Hx of cocaine and cannabis abuse admitted for agitation and HI related to recent drug abuse. He awaits transfer to inpatient drug rehab. Plan - Plan Treatment Plan: Name: CEE MOLINA Birthdate: 1995 [id number] Patient doing well on quetiapine 200mg PO qhs for insomnia. Await drug rehab placement. Continued Medication Management: Start Medication Medications: Current Medications Acetaminophen (Tylenol Tab*) 650 mg PO Q4H PRN PRN Reason: for pain; or Temp >101 F Last Admin: 04/21/16 18:18 Dose: 650 mg Al Hydrox/Mg Hydrox/Simethicone (Maalox Plus*) 30 ml PO Q4H PRN PRN Reason: INDIGESTION Multivitamins (Theragran Tab*) 1 tab PO DAILY [facility] Last Admin: 04/27/16 08:25 Dose: 1 tab Nicotine (Nicotine Inhaler*) 10 mg INH Q2H PRN PRN Reason: CRAVING Last Admin: 04/27/16 08:26 Dose: 10 mg Quetiapine Fumarate (Seroquel Tab*) 50 mg PO Q6H PRN PRN Reason: AGITATION/ANXIETY/INSOMNIA Last Admin: 04/27/16 08:25 Dose: 50 mg Quetiapine Fumarate (Seroquel Tab*) 100 mg PO BEDTIME [facility] Last Admin: 04/26/16 21:01 Dose: 100 mg - Discharge Plan Discharge Plan: Drug/Alcohol Rehab
[2016-04-27] MEDS: QUEtiapine TAB* 100 MG PO SCH (21:27)
[2016-04-28] MEDS: Vitamin THERAPEUTIC TAB PO SCH (08:27)
[2016-04-28] MEDS: QUEtiapine TAB* 25 MG PO PRN (08:28)
--- NOTE | 2016-04-28 12:02 | PN ---
Subjective - Subjective Service Type: 37539 Hosp care 15 min low complexity Subjective: The patient is calm, cooperative and reasonable. He is patiently awaiting transfer to a drug rehab facility, likely [facility] in [place], [place]. He has no acute complaints. Objective - Appearance Appearance: Well Developed/Nourished Dysmorphic Features: No Hygiene: Normal Grooming: Well Kept - Behavior Psychomotor Activities: Normal Exhibits Abnormal Movement: No - Attitude and Relatedness Attitude and Relatedness: Cooperative Eye Contact: Good - Speech Quality: Unpressured Latencies: Normal Quantity: Appropriate - Mood Patient's Decription of Mood: "Good" - Affect Observed Affect: Good Affect Consistent with: Euthymia - Thought Process Patient's Thought Process: Coherent Thought Content: No Passive Wish, No Suicidal Planning, No Homicidal Ideation, No Paranoid Ideation - Sensorium Experiencing Hallucinations: No, Sensorium is Clear Type of Hallucinations: Visual: No, Auditory: No, Command: No - Level of Consciousness Level of Consciousness: Alert Orientation: Yes Intact, Yes Orientated to Time, Yes Orientated to Place, Yes Orientated to Person - Impulse Control Impulse Control: Tenuous - Insight and Judgement Insight and Judgement: Fair - Group Participation Particating in Group Activities: Yes - Medication Management Medication Management Adherence: Yes Assessment - Assessment Merits Inpatient Hospitalization: Pending Safe DC Plan 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 single, mixed-race male with a Hx of cocaine and cannabis abuse admitted for agitation and HI related to recent drug abuse. He awaits transfer to inpatient drug rehab. Plan - Plan Treatment Plan: Name: CEE MOLINA Birthdate: 1995 [id number] Patient doing well on quetiapine 200mg PO qhs for insomnia. Await drug rehab placement. Continued Medication Management: Start Medication Medications: Current Medications Acetaminophen (Tylenol Tab*) 650 mg PO Q4H PRN PRN Reason: for pain; or Temp >101 F Last Admin: 04/21/16 18:18 Dose: 650 mg Al Hydrox/Mg Hydrox/Simethicone (Maalox Plus*) 30 ml PO Q4H PRN PRN Reason: INDIGESTION Multivitamins (Theragran Tab*) 1 tab PO DAILY [facility] Last Admin: 04/28/16 08:27 Dose: 1 tab Nicotine (Nicotine Inhaler*) 10 mg INH Q2H PRN PRN Reason: CRAVING Last Admin: 04/27/16 22:28 Dose: 10 mg Quetiapine Fumarate (Seroquel Tab*) 50 mg PO Q6H PRN PRN Reason: AGITATION/ANXIETY/INSOMNIA Last Admin: 04/28/16 08:28 Dose: 50 mg Quetiapine Fumarate (Seroquel Tab*) 100 mg PO BEDTIME [facility]ON Last Admin: 04/27/16 21:27 Dose: 100 mg - Discharge Plan Discharge Plan: Drug/Alcohol Rehab
[2016-04-28] MEDS: Nicotine Inhaler* 10 MG AMP INH PRN ×3 (12:46→23:09)
[2016-04-28] MEDS: QUEtiapine TAB* 100 MG PO SCH (22:05)
[2016-04-28] MEDS: Acetaminophen TAB* 325 MG PO PRN (22:18)
[2016-04-29] MEDS: QUEtiapine TAB* 25 MG PO PRN (08:16)
[2016-04-29] MEDS: Vitamin THERAPEUTIC TAB PO SCH (08:16)
[2016-04-29] MEDS: Nicotine Inhaler* 10 MG AMP INH PRN ×4 (08:27→20:47)
[2016-04-29] MEDS: Nicotine GUM* 2 MG PO PRN ×2 (17:44→20:48)
[2016-04-29] MEDS: QUEtiapine TAB* 100 MG PO SCH (20:46)
[2016-04-30] MEDS: QUEtiapine TAB* 25 MG PO PRN (08:18)
[2016-04-30] MEDS: Vitamin THERAPEUTIC TAB PO SCH (08:18)
[2016-04-30] MEDS: Nicotine Inhaler* 10 MG AMP INH PRN ×3 (08:26→18:21)
[2016-04-30] MEDS: Nicotine GUM* 2 MG PO PRN ×4 (08:26→20:46)
[2016-04-30] MEDS: QUEtiapine TAB* 100 MG PO SCH (20:45)
[2016-05-01] MEDS: QUEtiapine TAB* 25 MG PO PRN ×2 (08:20→18:29)
[2016-05-01] MEDS: Nicotine GUM* 2 MG PO PRN ×2 (08:20→19:57)
[2016-05-01] MEDS: Vitamin THERAPEUTIC TAB PO SCH (08:20)
--- NOTE | 2016-05-01 10:27 | PN ---
Subjective - Subjective Service Type: 31520 Hosp care 15 min low complexity Subjective: The patient denies any further acute symptoms of depression, paranoia or anger. He denies SI or HI and is sleeping better of late. The patient awaits transfer to drug rehab. Objective - Appearance Appearance: Well Developed/Nourished Dysmorphic Features: No Hygiene: Normal Grooming: Well Kept - Behavior Psychomotor Activities: Normal Exhibits Abnormal Movement: No - Attitude and Relatedness Attitude and Relatedness: Cooperative Eye Contact: Good - Speech Quality: Unpressured Latencies: Normal Quantity: Appropriate - Mood Patient's Decription of Mood: "Okay" - Affect Observed Affect: Good Affect Consistent with: Euthymia - Thought Process Patient's Thought Process: Coherent Thought Content: No Passive Wish, No Suicidal Planning, No Homicidal Ideation, No Paranoid Ideation - Sensorium Experiencing Hallucinations: No, Sensorium is Clear Type of Hallucinations: Visual: No, Auditory: No, Command: No - Level of Consciousness Level of Consciousness: Alert Orientation: Yes Intact, Yes Orientated to Time, Yes Orientated to Place, Yes Orientated to Person - Impulse Control Impulse Control: Tenuous - Insight and Judgement Insight and Judgement: Fair - Group Participation Particating in Group Activities: Yes - Medication Management Medication Management Adherence: Yes Assessment - Assessment Merits Inpatient Hospitalization: Pending Safe DC Plan 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 single, mixed-race male with a Hx of cocaine and cannabis abuse admitted for agitation and HI related to recent drug abuse. He awaits transfer to inpatient drug rehab. Plan - Plan Treatment Plan: Name: CEE MOLINA Birthdate: 1995 [id number] Patient doing well on quetiapine 200mg PO qhs for insomnia. Await drug rehab placement. Continued Medication Management: Start Medication Medications: Current Medications Acetaminophen (Tylenol Tab*) 650 mg PO Q4H PRN PRN Reason: for pain; or Temp >101 F Last Admin: 04/28/16 22:18 Dose: 650 mg Al Hydrox/Mg Hydrox/Simethicone (Maalox Plus*) 30 ml PO Q4H PRN PRN Reason: INDIGESTION Multivitamins (Theragran Tab*) 1 tab PO DAILY [facility] Last Admin: 05/01/16 08:20 Dose: 1 tab Nicotine (Nicotine Inhaler*) 10 mg INH Q2H PRN PRN Reason: CRAVING Last Admin: 04/30/16 18:21 Dose: 10 mg Nicotine Polacrilex (Nicotine Gum*) 2 mg PO Q2H PRN PRN Reason: NICOTINE REPLACEMENT Last Admin: 05/01/16 08:20 Dose: 2 mg Quetiapine Fumarate (Seroquel Tab*) 50 mg PO Q6H PRN PRN Reason: AGITATION/ANXIETY/INSOMNIA Last Admin: 05/01/16 08:20 Dose: 50 mg Quetiapine Fumarate (Seroquel Tab*) 100 mg PO BEDTIME [facility]ON Last Admin: 04/30/16 20:45 Dose: 100 mg - Discharge Plan Discharge Plan: Drug/Alcohol Rehab
--- NOTE | 2016-05-01 13:57 | PN ---
MHU: Group Therapy Note - Service Type Service Type: 02134 Group Psychotherapy - Cognitive Behavioral Group Therapy ( CBT):Patient attended CBT programming this morning and presented with flat affect that did not vary with discussion. Although responsive to direct prompts to respond to questions, patient did not engage in spontaneous conversation.
[2016-05-01] MEDS: Acetaminophen TAB* 325 MG PO PRN (18:29)
[2016-05-01] MEDS: QUEtiapine TAB* 100 MG PO SCH (20:48)
[2016-05-01] MEDS ORDERED: Ibuprofen TAB* 400 MG ONE (22:17)
[2016-05-02] MEDS: Vitamin THERAPEUTIC TAB PO SCH (08:22)
[2016-05-02] MEDS: Ibuprofen TAB* 400 MG PO PRN ×2 (08:22→22:14)
[2016-05-02] MEDS: Nicotine GUM* 2 MG PO PRN ×3 (08:23→22:15)
[2016-05-02] MEDS: QUEtiapine TAB* 25 MG PO PRN ×2 (08:23→15:33)
[2016-05-02] MEDS: Acetaminophen TAB* 325 MG PO PRN (08:23)
[2016-05-02] MEDS ORDERED: Influenza VAC *QUAD* 2016-17* 0.5 ML SYRINGE IM ONE (12:45)
--- NOTE | 2016-05-02 12:50 | PN ---
Subjective - Subjective Service Type: 67633 Hosp care 15 min low complexity Subjective: The patient remains stable and cooperative, awaiting rehab placement. He requests a flu shot today. He continues to deny SI or HI. Objective - Appearance Appearance: Well Developed/Nourished Dysmorphic Features: No Hygiene: Normal Grooming: Well Kept - Behavior Psychomotor Activities: Normal Exhibits Abnormal Movement: No - Attitude and Relatedness Attitude and Relatedness: Cooperative Eye Contact: Good - Speech Quality: Unpressured Latencies: Normal Quantity: Appropriate - Mood Patient's Decription of Mood: "Okay" - Affect Observed Affect: Fair Affect Consistent with: Euthymia - Thought Process Patient's Thought Process: Coherent Thought Content: No Passive Wish, No Suicidal Planning, No Homicidal Ideation, No Paranoid Ideation - Sensorium Experiencing Hallucinations: No, Sensorium is Clear Type of Hallucinations: Visual: No, Auditory: No, Command: No - Level of Consciousness Level of Consciousness: Alert Orientation: Yes Intact, Yes Orientated to Time, Yes Orientated to Place, Yes Orientated to Person - Impulse Control Impulse Control: Tenuous - Insight and Judgement Insight and Judgement: Fair - Group Participation Particating in Group Activities: Yes - Medication Management Medication Management Adherence: Yes Assessment - Assessment Merits Inpatient Hospitalization: Pending Safe DC Plan 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 single, mixed-race male with a Hx of cocaine and cannabis abuse admitted for agitation and HI related to recent drug abuse. He awaits transfer to inpatient drug rehab. Plan - Plan Treatment Plan: Name: CEE MOLINA Birthdate: 1995 [id number] Patient doing well on quetiapine 200mg PO qhs for insomnia. Await drug rehab placement. Continued Medication Management: Start Medication Medications: Current Medications Acetaminophen (Tylenol Tab*) 650 mg PO Q4H PRN PRN Reason: for pain; or Temp >101 F Last Admin: 05/02/16 08:23 Dose: 650 mg Al Hydrox/Mg Hydrox/Simethicone (Maalox Plus*) 30 ml PO Q4H PRN PRN Reason: INDIGESTION Ibuprofen (Motrin Tab*) 400 mg PO Q4H PRN PRN Reason: PAIN Last Admin: 05/02/16 08:22 Dose: 400 mg Influenza Virus Vaccine (Fluarix *Quad* 2016-17*) 0.5 ml IM .ONCE ONE Stop: 05/02/16 12:46 Multivitamins (Theragran Tab*) 1 tab PO DAILY [facility] Last Admin: 05/02/16 08:22 Dose: 1 tab Nicotine (Nicotine Inhaler*) 10 mg INH Q2H PRN PRN Reason: CRAVING Last Admin: 04/30/16 18:21 Dose: 10 mg Nicotine Polacrilex (Nicotine Gum*) 2 mg PO Q2H PRN PRN Reason: NICOTINE REPLACEMENT Last Admin: 05/02/16 08:23 Dose: 2 mg Quetiapine Fumarate (Seroquel Tab*) 50 mg PO Q6H PRN PRN Reason: AGITATION/ANXIETY/INSOMNIA Last Admin: 05/02/16 08:23 Dose: 50 mg Quetiapine Fumarate (Seroquel Tab*) 100 mg PO BEDTIME [facility] Last Admin: 05/01/16 20:48 Dose: 100 mg - Discharge Plan Discharge Plan: Drug/Alcohol Rehab
[2016-05-02] MEDS: QUEtiapine TAB* 100 MG PO SCH (21:09)
[2016-05-03 08:30] VITALS: BP 125/76
[2016-05-03] MEDS: Nicotine GUM* 2 MG PO PRN ×2 (08:37→10:58)
[2016-05-03] MEDS: QUEtiapine TAB* 25 MG PO PRN (08:37)
[2016-05-03] MEDS: Vitamin THERAPEUTIC TAB PO SCH (08:38)
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
== END 2016-05-03 12:15 | DRG 774 ==
LOC: ED 01:55 → BSU 04-19 15:52
PROVIDERS: ADMIT Psychiatry & Neurology Psychiatry; ATTEND Psychiatry & Neurology Psychiatry
DX: F14.14 Cocaine abuse with cocaine-induced mood disorder (principal); F17.210 Nicotine dependence, cigarettes, uncomplicated; F12.10 Cannabis abuse, uncomplicated; Z81.8 Family history of other mental and behavioral disorders; Z81.3 Family history of other psychoactive substance abuse and dependence; Z59.9 Problem related to housing and economic circumstances, unspecified; Z65.3 Problems related to other legal circumstances; Z23 Encounter for immunization
CPT/HCPCS: 36415; 80053; 80307; 80320; 80329; 81003; 84443; 85025; 90686; 90853; 99222; 99231; 99238; 99282; 99406; A9270-GY; G0480

== ENCOUNTER 2017-07-01 02:27 | Emergency (ER) | payer OTHER ==
[2017-07-01] MEDS ORDERED: Ibuprofen TAB* 400 MG PO ONE (03:44)
[2017-07-01] MEDS ORDERED: Ketorolac INJ* 60 MG/2 ML VIAL IM ONE (03:45)
[2017-07-01] MEDS ORDERED: oxyCODONE/Acetamin 5/325 MG* TAB PO ONE (03:46)
[2017-07-01 05:25] VITALS: BP 108/57
--- NOTE | 2017-07-01 09:25 | RAD ---
Indication: LEFT knee pain following traumatic injury. Comparison: No relevant prior exams available on the [facility] PACS for comparison. Technique: AP and crosstable lateral views LEFT knee Report: Negative for joint effusion, fracture, or malalignment. Preserved joint spaces. Unremarkable soft tissue contours. IMPRESSION: Negative radiographic exam of the LEFT knee.
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
== END 2017-07-01 05:25 | disposition home or self-care (01) ==
LOC: ED 02:27
DX: S83.92XA Sprain of unspecified site of left knee, initial encounter (principal); V03.10XA Pedestrian on foot injured in collision with car, pick-up truck or van in traffic accident, initial encounter; Y92.410 Unspecified street and highway as the place of occurrence of the external cause
CPT/HCPCS: 96372; 99283; A9270-GY; J1885

== ENCOUNTER → 2017-11-18 21:40 | Emergency (ER) | payer OTHER ==
[2017-11-18 21:45] VITALS: BP 138/84
== END | disposition left against medical advice (07) ==
LOC: ED 21:40
DX: R06.02 Shortness of breath (principal); Z53.21 Procedure and treatment not carried out due to patient leaving prior to being seen by health care provider